=== PATIENT | male | born 1980 | race Caucasian/White ===

== ENCOUNTER → 2024-06-25 | Outpatient (CLI) | payer OTHER, SELFPAY ==
--- NOTE | 2024-06-25 15:30 | XR_ITS ---
Examination: CT middle inner ear, without contrast. 2-D coronal reconstructions. 2-D sagittal reconstructions. Date and time of exam: June 25, 2024 1509 hours INDICATIONS: Right ear infections beginning 18 months ago, left mastoidectomy 20 years ago CTDI: vol (mGy): 17.4 DLP: (mGycm):255 Technique: Multiple 1.0 mm axial sections of the middle inner ears bilaterally. High-resolution 64 slice scanner utilized. 2-D coronal reconstructions 2-D sagittal reconstructions Low dose protocols were performed. One or more of the following dose reduction techniques were used; automated exposure control, adjustment of the mA and/or KV according to patient size, use of iterative reconstruction technique. Findings: Axial sections of the right demonstrate prominently reduced mastoid aeration. Acute right mastoiditis Jugular fossa and carotid canal do not appear remarkable. No deformity of the ossicles. Porus acusticus internus does not exhibit erosion. Cochlear apparatus unremarkable. Semicircular canals normal. External auditory canal open. Right otitis media Coronal reconstructions demonstrate no erosion of the scutum. No soft tissue mass in the attic or Prussak's space is seen. Ossicular mass intact. Axial sections of the left demonstrate prominently reduced mastoid aeration. Jugular fossa and carotid canal do not appear remarkable. No deformity of the ossicles. Porus acusticus internus does not exhibit erosion. Cochlear apparatus unremarkable. Semicircular canals normal. External auditory canal open Large surgical defect left mastoid air cells Coronal reconstructions demonstrate no erosion of the scutum. No soft tissue mass in the attic or Prussak's space is seen. Ossicular mass intact. Roof of the mastoid air cells appear intact bilaterally. Prominent mucosal disease in the maxillary antra sphenoid air cells Moderate mucosal thickening ethmoid air cells and frontal air cells Impression: Bilateral chronic mastoiditis Right acute mastoiditis Right otitis media Large surgical defect left mastoid air cells Significant sinusitis
== END | disposition home or self-care (01) ==
LOC: CCTX 14:54
PROVIDERS: Referring Provider Otolaryngology; Visit Provider Otolaryngology
DX: H70.13 Chronic mastoiditis, bilateral (principal); H70.001 Acute mastoiditis without complications, right ear; H66.91 Otitis media, unspecified, right ear; J32.9 Chronic sinusitis, unspecified
CPT/HCPCS: 70480

== ENCOUNTER 2024-10-08 09:20 | Day surgery (SDC) | payer OTHER, SELFPAY ==
--- NOTE | 2024-10-07 06:33 | EKG_ITS ---
[facility] Test Date: 2024-10-07 Pat Name: RASHARD FAIRCHILD Department: Room: - Gender: Male Pharmacy Resource Tech: RANJANA : 1980 Requested By: Manuel Acosta Order Number: [id number] Reading MD: Manuel Acosta Measurements Intervals [place] Rate: 73 P: 50 [place]: 176 QRS: 19 QRSD: 108 T: 76 QT: 375 QTc: 414 Interpretive Statements SINUS RHYTHM WITH SINUS ARRHYTHMIA Compared to ECG 01/25/2024 23:03:08 No significant changes /store/S0/[id number].pdf
[2024-10-07 09:30] VITALS: BMI 38.6
[2024-10-07 11:00] LABS: Alanine Aminotransferase 46 U/L (10-49); Albumin, Serum 4.8 gm/dL (3.5-5.0); Albumin/Globulin Ratio 1.8 (1.2-2.2); Alkaline Phosphatase 102 U/L (46-116); Anion Gap 4 (7-16); Aspartate Amino Transferase 29 U/L (0-34); BUN/Creatinine Ratio 13 Ratio (12-20); Bilirubin,Total 0.4 mg/dL (0.3-1.2); Blood Urea Nitrogen 15 mg/dL (9-23); Calcium 9.6 mg/dL (8.3-10.6); Calcium (Corrected) 9.6 mg/dL (8.5-10.1); Carbon Dioxide 27.6 mMol/L (20.0-31.0); Chloride 105 mMol/L (98-107); Creatinine (Component) 1.2 mg/dL (0.6-1.3); Estimated Creatinine Clearance 98.9 mL/min (>60); Globulin 2.7 gm/dL (2.3-3.5); Glucose 111 mg/dL (74-106); Osmolality,Calculated 275 (275-295); Potassium 4.4 mMol/L (3.4-5.1); Sodium 137 mMol/L (136-145); Total Protein 7.5 gm/dL (5.7-8.2); eGFR > 60 See Note
[2024-10-08] VITALS (7 sets, daily range): BP systolic 120–151; BP diastolic 74–92; PULSE 70–88; RESP 12–20; TEMP 36.2–37.1; O2SAT 94–99; BMI 38.3
--- NOTE | 2024-10-08 13:54 | SUR.PHASEI ---
pt received from OR in recovery bay 1. pt asleep but responds to voice, breathing unlabored on oxymask 8l. v/s stable. pt dressing to right ear cdi. report received from Prosper SHAW and Dr. Marks.
--- NOTE | 2024-10-08 14:00 | PD.SUROPNT ---
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 There is a squamous lined pocket extending deep to the incus. The ossicular chain was intact and mobile and the retraction pocket did not appear to be involving the incus. The chorda tympani nerve was identified and preserved. The facial nerve was identified and preserved as well. This was confirmed with the nerve monitor Procedure Description This is a 44-year-old male with chronic mastoiditis confirmed on CT scan with soft tissue density in the epitympanic region posteriorly. He also was found to have a mixed hearing loss on that side. Surgical intervention was recommended and he wished to proceed. Risk of bleeding infection hearing loss dizziness tinnitus and potential need for further surgery were discussed with him. Anticipated outcomes were discussed as well. He is aware the main goal of the surgery is to remove the infection and any cholesteatomatous debris that might be present. Patient was marked and shaved in the preoperative setting then transferred to the operative suite where he was anesthetized and intubated. Facial nerve monitoring electrodes were placed in usual fashion the patient was sterilely prepped and draped. Timeout was performed. Postauricular area was injected with 1% lidocaine with 1-100,000 dilution epinephrine. Approximately 4 cc total were used. The canal was injected later as well. The canal was irrigated with warm saline solution and suction. Under microscopic visualization the granuloma was removed and sent with the cholesteatomatous pocket that was removed later. Posterior tympanomeatal flap was formed and the drum turned forward. I was able to dissect the pocket and debris off of the chorda tympani nerve. The scutum was curetted back to get better visualization of the body of the incus. It was uninvolved after removing the pocket and granuloma as well. The ossicular chain was intact and mobile. Posterior vascular strip was created. And then went back behind the ear and created a postauricular incision and palva flap. The ear was turned forward and the posterior vascular strip elevated and held in place with self-retaining retractors. Canal wall up mastoidectomy was then performed. Dissection was carried anterior to the sigmoid sinus and the sinodural angle was opened up. The drilling was performed up to the tegmen but not exposing it. Dissection was carried down into the tip until healthy bone was visualized. Horizontal canal was identified the drilling was carried up into the attic region and nose signs of disease or cholesteatoma was visualized there. The facial nerve was identified at the second genu near the horizontal canal and was confirmed with the nerve stimulator. Mastoid cavity was irrigated with warm saline solution and suction. Temporalis fascia been harvested previously and had been pressed and dried. This was trimmed then brought into the external canal under microscopic visualization. The drum was then elevated off the long process of the malleus it was tucked up anteriorly underneath the tympanic membrane and on top of the malleus. Middle ear was packed with Surgifoam dipped in saline. The graft and the tympanomeatal flap were draped back onto the posterior canal wall. More Surgifoam dipped in Ciprodex this time was packed on top of the tympanic membrane and graft. Double antibiotic was then placed on top of this and then Adaptic and a sterile cottonball was placed in the external meatus after placing the vascular strip back to its normal position. Postauricular incision was closed in a multilayer fashion with 4-0 Vicryl and Dermabond on the skin. Facial nerve monitoring electrodes were removed the patient was awakened and taken recovery room in stable condition Anesthesia GETA Pathology / specimen Other (Right tympanic granuloma and squamous retraction pocket) Estimated Blood Loss 10 Surgeon Manuel Todd DO Surgical Staff Operation Date: 10/08/24 11:30 Case Staff Anesthesiologist: Jonathan Marks
--- NOTE | 2024-10-08 14:35 | SUR.PHASEII ---
pt able to tolerate oral fluids without difficulty swallowing or nausea/vomiting.
--- NOTE | 2024-10-08 15:12 | SUR.PHASEII ---
pt awake and alert, breathing unlabored on room air. v/s stable. pt dressing to right ear cdi. pt able to ambulate to wheelchair with steady gait. d/c instructions given with Heather in room, all questions answered. pt d/c via wheelchair with all belongings.
== END 2024-10-08 15:12 | disposition home or self-care (01) ==
PROVIDERS: Anesthesiology; PCP Family Medicine; Referring Provider Otolaryngology; Visit Provider Otolaryngology
PROC: (CPT 69502; principal; 2024-10-08 11:15)
DX: H70.11 Chronic mastoiditis, right ear (principal); H90.71 Mixed conductive and sensorineural hearing loss, unilateral, right ear, with unrestricted hearing on the contralateral side; F17.210 Nicotine dependence, cigarettes, uncomplicated; Z01.810 Encounter for preprocedural cardiovascular examination
CPT/HCPCS: 69641; 36415; 80053; 93005; A4217; A4649; J0171; J0690; J1100; J1885; J2250; J2405; J2704; J3010; J3473; J3490; J7040; A9270